=== PATIENT | female | born 1995 | race American Indian/Alaskan Native ===

== ENCOUNTER 2022-01-27 17:15 | Emergency (ER) | payer SELFPAY ==
[2022-01-27 18:31] LABS: Basophils % (Auto) 0.9 % (0.0-1.8); Eosinophils # (Auto) 0.1 K/mm3 (0.0-0.4); Eosinophils % (Auto) 2.2 % (0.0-4.3); Hematocrit 41.7 % (30.3-42.9); Hemoglobin 13.6 gm/dl (10.1-14.3); Lymphocytes # (Auto) 1.8 K/mm3 (1.2-5.4); Lymphocytes % (Auto) 30.4 % (13.4-35.0); Mean Corpuscular HGB Conc 33 % (30-34); Mean Corpuscular Volume 97 fl (79-97); Monocytes # (Auto) 0.4 K/mm3 (0.0-0.8); Monocytes % (Auto) 7.7 % (0.0-7.3); Platelet Count 207 K/mm3 (140-440); Red Blood Count 4.29 M/mm3 (3.65-5.03); Red Cell Distribution Width 13.1 % (13.2-15.2)
[2022-01-27 18:44] LABS: Alanine Aminotransferase 11 units/L (7-56); Albumin 4.3 g/dL (3.9-5); Blood Urea Nitrogen 5 mg/dL (7-17); Calcium 9.7 mg/dL (8.4-10.2); Hemolysis Index 23
[2022-01-27 18:51] LABS: BUN/Creatinine Ratio 7
[2022-01-27] MEDS ORDERED: ONDANSETRON 4 MG/2 ML INJ IV ONE (22:52)
[2022-01-27] MEDS ORDERED: D5W/0.9% NACL 1,000 ML IV SCH (23:00)
[2022-01-27 23:36] LABS: Bacteria,Urine 1+ /HPF (Negative); Mucus,Urine 3+ /HPF
[2022-01-27 23:38] LABS: Color,Urine Yellow (Yellow)
[2022-01-27] MEDS ORDERED: PYRIDOXINE 50 MG TAB PO SCH (23:43)
[2022-01-27] MEDS ORDERED: diphenhydrAMINE 50 MG/ML VIAL IV STA (23:43)
[2022-01-27] MEDS ORDERED: METOCLOPRAMIDE 10 MG/2 ML INJ IV STA (23:43)
--- NOTE | 2022-01-28 01:02 | Emergency Department Report ---
ED General Adult HPI - General Chief complaint: Nausea/Vomiting/Diarrhea Stated complaint: NAUSEA/VOMITING (7 WEEKS ) Time Seen by Provider: 01/27/22 23:17 Source: patient, EMS Mode of arrival: Stretcher Limitations: No Limitations - History of Present Illness Initial comments: 26-year-old female 7 weeks presents emerged from complaining of recurrent vomiting episodes does not appear to be responding to Zofran. She reports no fevers, chills, sweats. No diarrhea, no constipation, no hemoptysis no hematemesis hematochezia. Report no chest pain or palpitations. Severity scale (0 -10): 0 - Related Data Previous Rx's Medication Instructions Recorded Last Taken Type Doxylamine Succinate/Vit B6 1 each PO TID #30 01/28/22 Unknown Rx [Diclegis Dr 10-10 mg Tablet] Allergies Allergy/AdvReac Type Severity Reaction Status Date / Time No Known Allergies Allergy Unverified 01/27/22 17:23 ED Review of Systems ROS: Stated complaint: NAUSEA/VOMITING (7 WEEKS ) Other details as noted in HPI Comment: All other systems reviewed and negative ED Past Medical Hx - Past Medical History Previous Medical History?: No - Medications Home Medications: Home Medications Medication Instructions Recorded Confirmed Last Taken Type Doxylamine Succinate/Vit B6 1 each PO TID #30 01/28/22 Unknown Rx [Diclegis Dr 10-10 mg Tablet] ED Physical Exam - General Limitations: No Limitations General appearance: alert, in no apparent distress - Head Head exam: Present: atraumatic, normocephalic - Eye Eye exam: Present: normal appearance, PERRL, EOMI Pupils: Present: normal accommodation - ENT ENT exam: Present: normal exam, normal orophraynx, mucous membranes moist, TM's normal bilaterally - Neck Neck exam: Present: normal inspection, full ROM - Respiratory Respiratory exam: Present: normal lung sounds bilaterally. Absent: respiratory distress, wheezes, rales - Cardiovascular Cardiovascular Exam: Present: regular rate, normal rhythm. Absent: systolic murmur, diastolic murmur, rubs, gallop - GI/Abdominal GI/Abdominal exam: Present: soft, normal bowel sounds - Extremities Exam Extremities exam: Present: normal inspection, normal capillary refill - Back Exam Back exam: Present: normal inspection. Absent: CVA tenderness (R), CVA tenderness (L) - Neurological Exam Neurological exam: Present: alert, oriented X3, CN II-XII intact - Psychiatric Psychiatric exam: Present: normal affect, normal mood - Skin Skin exam: Present: warm, dry, intact, normal color. Absent: rash, cyanosis, diaphoretic ED Course Vital Signs 01/27/22 17:16 Temperature 98.7 F Pulse Rate 84 Respiratory 18 Rate Blood Pressure 110/70 [Left] O2 Sat by Pulse 99 Oximetry ED Medical Decision Making - Lab Data Result diagrams: 01/27/22 18:14 01/27/22 18:14 - Medical Decision Making Female presents emergency department complaining of nausea and vomiting without diarrhea. The patient is overall well-appearing and suspected to have hyperemesis gravidarum. Given the history of examination he does not appear to be an emergency cause for the symptoms such as small bowel obstruction, coronary syndrome, bowel ischemia, DKA, pancreatitis, appendicitis, acute abdomen no emergent problem. Patient was treated with Reglan, Benadryl, fluids as well as vitamin D6. After treatment patient is feeling much better tolerating p.o. fluids shows no signs of dehydration Critical care attestation.: If time is entered above; I have spent that time in minutes in the direct care of this critically ill patient, excluding procedure time. ED Disposition Clinical Impression: Hyperemesis gravidarum Disposition: 01 HOME / SELF CARE / HOMELESS Is pt being admited?: No Does the pt Need Aspirin: No Condition: Stable Instructions: Hyperemesis Gravidarum Prescriptions: Doxylamine Succinate/Vit B6 [Maycol Segovia 10-10 mg Tablet] 1 each PO TID #30 Referrals: [facility] [Provider Group] - 3-5 Days
[2022-01-28 01:33] VITALS: BP 88/43
== END 2022-01-28 02:10 | disposition home or self-care (01) ==
LOC: ED 17:15
DX: O21.1 Hyperemesis gravidarum with metabolic disturbance (principal); Z3A.01 Less than 8 weeks gestation of pregnancy
CPT/HCPCS: 36415; 80053; 81001; 84702; 85025; 87086; 96374; 96375; 99284; J1200; J2405; J2765; 87076; 87186